=== PATIENT | male | born 1950 | race Caucasian/White ===

== ENCOUNTER 2021-02-24 06:46 | Day surgery (SDC) | payer OTHER, MEDICARE, SELFPAY ==
[~2021-02-24] VITALS: Ht 167.6 cm; Wt 72.6 kg
[2021-02-24] MEDS ORDERED: CEFAZOLIN SOD 2 GM in D5W 50 ML IV ONE (07:45)
[2021-02-24 07:59] LABS: CALCIUM 8.9 mg/dL (8.4-11.0); POTASSIUM 4.7 mmol/L (3.5-5.1)
[2021-02-24 08:09] LABS: CREATININE 6.41 mg/dL (0.55-1.30)
[2021-02-24] MEDS ORDERED: fentaNYL CITRATE/PF 100 MCG/2 ML AMP IVP ONE (09:40)
[2021-02-24] MEDS ORDERED: LIDOCAINE 1% 10 MG/ML, 20 ML MDV INJ ONE (09:40)
[2021-02-24] MEDS ORDERED: BUPIVACAINE /EPINEPHRINE/PF 0.5% 30 ML VIAL INJ ONE (09:40)
[2021-02-24] MEDS ORDERED: NS IRRIG SOLN 1000 ML IR ONE (09:40)
[2021-02-24] MEDS ORDERED: MIDAZOLAM HCL 5 MG/5 ML VIAL IVP ONE (09:40)
[2021-02-24] MEDS ORDERED: LR 1,000 ML IV.SOLN IV ONE (09:40)
[2021-02-24] MEDS ORDERED: HYDROmorphone 1 MG/ML INJ. CARTRIDGE IVP PRN ×2 (11:00)
[2021-02-24] MEDS ORDERED: NACL 0.9% 1,000 ML IV SCH (11:00)
[2021-02-24] MEDS ORDERED: ONDANSETRON HCL 4 MG/2 ML VIAL IVP PRN (11:00)
[2021-02-24] MEDS ORDERED: METOCLOPRAMIDE HCL 10 MG/2 ML VIAL IVP PRN (11:00)
[2021-02-24 13:02] VITALS: BP_SYST 167
== END 2021-02-24 12:30 | disposition home or self-care (01) ==
LOC: SDS 06:46
PROVIDERS: ATTEND Surgery
DX: L72.0 Epidermal cyst (principal); L72.3 Sebaceous cyst; L08.9 Local infection of the skin and subcutaneous tissue, unspecified; R22.1 Localized swelling, mass and lump, neck; I12.0 Hypertensive chronic kidney disease with stage 5 chronic kidney disease or end stage renal disease; E11.22 Type 2 diabetes mellitus with diabetic chronic kidney disease; I25.10 Atherosclerotic heart disease of native coronary artery without angina pectoris; E78.00 Pure hypercholesterolemia, unspecified; G47.00 Insomnia, unspecified; Z95.1 Presence of aortocoronary bypass graft; E11.51 Type 2 diabetes mellitus with diabetic peripheral angiopathy without gangrene; Z79.899 Other long term (current) drug therapy
CPT/HCPCS: 11402; 11424; 36415 ×2; 80048; 87426; 88304; J0690; J2001; J2250; J3010; J3490; J7060; J7120

== ENCOUNTER 2024-01-29 06:40 | Day surgery (SDC) | payer OTHER, MEDICARE ==
[2024-01-29] MEDS ORDERED: SIMETHICONE 40 MG/0.6 ML ML ONE (07:21)
[2024-01-29] MEDS ORDERED: fentaNYL CITRATE/PF 100 MCG/2 ML AMP ONE (07:22)
[2024-01-29] MEDS ORDERED: MIDAZOLAM HCL 5 MG/5 ML VIAL ONE (07:22)
[2024-01-29 12:59] VITALS: O2SAT 99
[2024-01-29 14:40] VITALS: BP_SYST 141; PULSE 64; RESP 18
== END 2024-01-29 09:45 | disposition home or self-care (01) ==
LOC: SDS 06:40 → SMU 06:40 → SDS 09:45
PROVIDERS: ATTEND Internal Medicine
DX: R19.4 Change in bowel habit (principal); D12.3 Benign neoplasm of transverse colon; K64.8 Other hemorrhoids; I25.10 Atherosclerotic heart disease of native coronary artery without angina pectoris; I12.9 Hypertensive chronic kidney disease with stage 1 through stage 4 chronic kidney disease, or unspecified chronic kidney disease; E10.22 Type 1 diabetes mellitus with diabetic chronic kidney disease; N18.2 Chronic kidney disease, stage 2 (mild); M19.90 Unspecified osteoarthritis, unspecified site; Z95.818 Presence of other cardiac implants and grafts; Z95.1 Presence of aortocoronary bypass graft; Z88.1 Allergy status to other antibiotic agents; Z88.8 Allergy status to other drugs, medicaments and biological substances; Z79.82 Long term (current) use of aspirin; Z79.899 Other long term (current) drug therapy; Z90.89 Acquired absence of other organs
CPT/HCPCS: 45385; 99152; 82948; 88305; G0378; J2250; J3010